=== PATIENT | female | born 1960 | race Caucasian/White ===

== ENCOUNTER 2020-12-18 16:57 | Emergency (ER) | payer OTHER, SELFPAY ==
--- NOTE | ~2020-12-18 | CT_ITS ---
EXAMINATION: CT cervical spine wo con DATE: 12/18/2020 17:34 INDICATION: Fall. Head and neck injury, pain. TECHNIQUE: Computed tomography (CT) of the cervical spine was performed without intravenous contrast. Automated exposure control and iterative reconstruction technique were employed. Exam dose: 119.74 mGy-cm total exam DLP. COMPARISON: None FINDINGS: There is straightening of the cervical spine. C1 and C2 are normally aligned and the odontoid process is intact. No fracture or dislocation or lock ed facet or prevertebral soft tissue swelling. There is severe degenerative disc disease at C4-5, C5-6 and C6-7. There is degenerative change at the apophyseal joints throughout the cervical spine. Prominent uncove rtebral joint spurring is noted at C4-5, C5-6 and C6-7. The lung apices are clear.. IMPRESSION: Straightening of the cervical spine No fracture or dislocation or locked facet Severe degenerative disc disease and prominent uncovertebral joint spurring at C4-5, C5-6 and C6-7 Degenerative change of the apophyseal joints throughout the cervical spine Reviewed, dictated and finalized at [facility]. Reviewed, dictated and finalized at [facility].
--- NOTE | ~2020-12-18 | XR_ITS ---
XR ribs LT 2V DATE: 12/18/2020 22:11 INDICATION: Fall down stairs. Mid lower rib pain TECHNIQUE: 3 views COMPARISON: None FINDINGS: There is diffuse osteopenia. There are old rib fracture deformities on left. No recent or displaced rib fracture is evident. There is osteoarthritic change at the left glenohumeral joint. There is thoracic and lumbar scoliosis. Left-sided triple lead pacemaker device. Normal heart size. Is aortic calcification and tortuosity. T he left lung is clear. No left pleural effusion or pneumothorax. IMPRESSION: Diffuse osteopenia. 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
--- NOTE | ~2020-12-18 | XR_ITS ---
XR chest 2V DATE: 12/18/2020 17:38 INDICATION: Fall. Left rib pain. TECHNIQUE: PA and lateral chest COMPARISON: 12/09/2016 portable AP chest FINDINGS: Left-sided transvenous pacemaker device with leads overlying right atrium, right ventricle and coronary sinus. Normal heart size. There is aortic calcification and mild aortic unfolding and tortuosity. No hilar or mediastinal enlargement. There is bilateral hyperinflation suggesting COPD. No pulmonary infiltrate or consolidation, pleural effusion or pulmonary vascular congestion or pneumothorax is detected. Old healed right lateral clavicular shaft fracture deformity. Diffuse osteopenia. Degenerative spurring of the thoracic spine. IMPRESSION: COPD; no active pulmonary disease Left triple lead pacemaker device Reviewed, dictated and finalized at [facility].
--- NOTE | ~2020-12-18 | CT_ITS ---
EXAMINATION: CT brain wo con DATE: 12/18/2020 17:34 INDICATION: Fall. Head injury. TECHNIQUE: Computed tomography (CT) of the head was performed without intravenous contrast. The mA wa s adjusted according to patient size. Iterative reconstruction technique was employed. Exam dose: 60 5.33 mGy-cm total exam DLP. COMPARISON: 12/09/2016 CT brain FINDINGS: Small chronic lacunar infarct of right thalamus. No intracranial mass lesion or hemorrhage or cerebrovascular accident is noted otherwise. No midline shift or mass effect. Normal ventricular size. No subdural or epidural hematoma. No fracture or bone destruction of the cranial vault. The mastoid air cells and included paranasal si nuses are normally developed and aerated. IMPRESSION: Chronic small lacunar infarct of right thalamus; no acute intracranial finding Reviewed, dictated and finalized at [facility]. Reviewed, dictated and finalized at [facility]. IMPRESSION: Chronic small lacunar infarct of right thalamus; no acute intracra nial finding
--- NOTE | 2020-12-18 17:01 | PC.NURSE ---
c collar placed on pt in triage d/t nature of fall.
[2020-12-18 17:05] VITALS: BP 159/93; PULSE 84; RESP 16; TEMP 37; O2SAT 97
--- NOTE | 2020-12-18 17:26 | PC.NURSE ---
pt to radiology in wheelchair
[2020-12-18 20:11] VITALS: BP 141/86; PULSE 82; RESP 18; O2SAT 100
[2020-12-18 21:36] VITALS: BP 148/92; PULSE 77; RESP 15; O2SAT 99
[2020-12-18] MEDS: ONDANSETRON HCL ODT 4 MG TABLET PO (22:21)
[2020-12-18] MEDS: HYDROcodone/acetaminophen (*CRX) 5-325 MG TABLET 1 TAB PO (22:21)
[2020-12-18 22:23] VITALS: BP 135/116; PULSE 82; RESP 15; O2SAT 99
--- NOTE | 2020-12-18 22:51 | ED.FALL ---
HPI - Fall General Chief Complaint: Fall Stated Complaint: HI s/p fall down 18 steps, L rib pain Time Seen by Provider: 12/18/20 21:38 Source: patient and RN notes reviewed Mode of arrival: ambulatory Limitations: no limitations History of Present Illness HPI Narrative: This is a 60 year of female who presents for evaluation of fall with head injury. PAtient states she was carrying a tv down the steps by herself. She slipped and fell down the steps. She hit her head but she denies LOC. She denies nausea, vomiting or dizziness. She also denies headache or neck pain. She reports having a couple of sores on her scalp from her fall. She denies taking anticoagulation. She does complain of left rib pain. Related Data Home Medications Medication Instructions Recorded Confirmed carisoprodol 12/18/20 carvedilol 12/18/20 clindamycin HCl 12/18/20 clonazepam 12/18/20 digoxin 12/18/20 hydrocodone-acetaminophen 12/18/20 irbesartan mg 12/18/20 Allergies Allergy/AdvReac Type Severity Reaction Status Date / Time codeine Allergy Mild [id number] Verified 12/18/20 21:31 Review of Systems Review of Systems: All systems reviewed & are unremarkable except as noted in HPI and below PMFSH Past Medical History Medical History (Updated 12/19/20 @ 00:00 by Whitney Wu) Hypertension Pacemaker Surgical History Surgical History (Updated 12/18/20 @ 23:05 by Fatimah Lewis MD) History of permanent cardiac pacemaker placement Social History Social History (Updated 12/18/20 @ 23:05 by Fatimah Lewis MD) Smoking status: Current every day smoker Exam Const: General: no acute distress and alert Orientation/consciousness: patient oriented x3 HENMT: Head: normocephalic, no hematomas and other (small parietal scalp wound, no bleeding, no laceration to repair) Face and sinus: face symmetric Mouth: Yes Normal oral and palatal mucosa present, Yes lip normal, Yes oropharynx normal and Yes moist mucous membranes Throat: posterior oropharynx normal Eyes: EOM: EOMs intact bilaterally Other: left eyelid with Neck: Neck: normal visual inspection and no lymphadenopathy Chest: Other: left lateral rib tenderness at 8-9 Resp: Effort & Inspection: normal respiratory effort and no retractions Auscultation: clear to auscultation bilaterally Cardio: Rate: regular rate Rhythm: regular rhythm Heart sounds: no murmurs GI: GI Palp: Yes Soft to palpation, No Tenderness to palpation present (GI) and No Guarding due to palpation present (GI) Auscultation: normal bowel sounds Other: no bruising to abdomen and flank : General: Yes no CVA tenderness Skin: General skin exam: normal color Rashes: no rashes Neuro: General: patient oriented x3, moves all extremities and CN's II-XI intact bilaterally Extrem: General: normal to inspection Psych: Mental Status: mental status grossly normal Affect: normal affect Course Reevaluation(s) Reevaluation #1: I Discussed with patient imaging results. No displaced rib fractures seen on xray. I discussed she may still have fracture. Bedside FAST was negative for FF. She was given incentive spirometer. She is alert and oriented x 4. Date: 12/18/20 Time: 23:06 Vital Signs Vital signs: Vital Signs Temperature 98.6 F 12/18/20 17:05 Pulse Rate 84 12/18/20 17:05 Respiratory Rate 16 12/18/20 17:05 Blood Pressure 159/93 H 12/18/20 17:05 Pulse Oximetry 97 12/18/20 17:05 Temperature 98.6 F 12/18/20 17:05 Pulse Rate 74 12/18/20 23:15 Respiratory Rate 17 12/18/20 23:15 Blood Pressure 156/36 H 12/18/20 23:15 Pulse Oximetry 97 12/18/20 23:15 MDM - Fall Imaging Data Radiologist's impression: ITS Impressions Head CT 12/18/20 17:43 IMPRESSION: Chronic small lacunar infarct of right thalamus; no acute intracranial finding Chest X-Ray 12/18/20 17:48 IMPRESSION: COPD; no active pulmonary disease Left triple
[2020-12-18 23:15] VITALS: BP 156/36; PULSE 74; RESP 17; O2SAT 97
== END 2020-12-18 23:15 | disposition home or self-care (01) ==
PROVIDERS: Emergency Provider General Practice; PCP Family Medicine
DX: S09.90XA Unspecified injury of head, initial encounter (principal); R07.81 Pleurodynia; I10 Essential (primary) hypertension; Z95.0 Presence of cardiac pacemaker; F17.200 Nicotine dependence, unspecified, uncomplicated; J44.9 Chronic obstructive pulmonary disease, unspecified; M50.321 Other cervical disc degeneration at C4-C5 level; M85.88 Other specified disorders of bone density and structure, other site; M19.012 Primary osteoarthritis, left shoulder; W10.9XXA Fall (on) (from) unspecified stairs and steps, initial encounter
CPT/HCPCS: 70450; 71046; 71100; 72125; 99284; A9270; L0140